=== PATIENT | male | born 1965 | race Caucasian/White ===

== ENCOUNTER → 2016-08-18 | Outpatient (CLI) | payer BC ==
--- NOTE | 2016-08-18 12:23 | DIAGNOSTIC IMAGING REPORT ---
ULTRASOUND ANKLE-BRACHIAL INDICES CLINICAL HISTORY: Peripheral vascular disease. FINDINGS: Ankle-brachial indices are calculated. Right brachial pressure measures 147. Pressures in the right posterior tibial artery measure 172 for an ARIN of 1.14, and pressures in the right dorsalis pedis artery measure 166 for an ARIN of 1.10. Left brachial pressure measures 151. Pressures in the left posterior tibial artery measure 170 for an ARIN of 1.13, and pressures in the left dorsalis pedis artery measure 160 for an ARIN of 1.06. IMPRESSION: Ankle-brachial indices as above. Dictated: 08/18/2016 11:55 AM Transcribed: 08/18/2016 12:23 PM [email or web address] Electronically signed by: Jarad Zuluaga M.D. 08/18/2016 12:29 PM Dictated Date/Time: 08/18/2016 11:55 AM
== END | disposition home or self-care (01) ==
LOC: C.ULTR 10:18
PROVIDERS: ATTEND Family Medicine
DX: R23.0 Cyanosis (principal)

== ENCOUNTER → 2017-10-15 | Outpatient (CLI) | payer BC ==
--- NOTE | 2017-10-15 09:09 | DIAGNOSTIC IMAGING REPORT ---
Biliary ultrasound CLINICAL HISTORY: Abnormal liver function tests COMPARISON STUDY: No previous studies for comparison. FINDINGS: The pancreas appeared normal as visualized. The gallbladder was sonographically normal. There is no ductal dilatation. The common bile duct measured 4 mm. There is no right-sided hydronephrosis. The liver was slightly heterogeneous in echotexture, and there was slight increase in hepatic echogenicity. No focal hepatic masses were visualized IMPRESSION: 1. No evidence of ductal dilatation 2. Slight increase in hepatic echogenicity with slight heterogeneity in hepatic echotexture. While nonspecific, this could be secondary to hepatic steatosis. No focal hepatic masses were visualized Electronically signed by: Vamsi Womack M.D. 10/15/2017 9:08 AM Dictated Date/Time: 10/15/2017 9:06 AM
--- NOTE | 2017-10-15 09:10 | DIAGNOSTIC IMAGING REPORT ---
SOFT TISS HEAD/NECK-THYROID CLINICAL HISTORY: 52 years-old Male with E041. Nontoxic single thyroid nodule COMPARISON: None available TECHNIQUE: Multiple real time sonographic images of the thyroid were obtained accessing powell scale appearance and color doppler flow. FINDINGS: MEASUREMENTS: Right lobe: 4.6 x 1.7 x 1.9 cm Left lobe: 4.2 x 1.5 x 1.5 cm Isthmus: 0.4 cm PARENCHYMA: The thyroid parenchymal echotexture is homogeneous. NODULES: No discrete nodules are appreciated. IMPRESSION: No thyroid nodules identified. The above report was generated using voice recognition software. It may contain grammatical, syntax or spelling errors. Electronically signed by: Edward Leroy M.D. 10/15/2017 9:08 AM Dictated Date/Time: 10/15/2017 9:07 AM
== END | disposition home or self-care (01) ==
LOC: C.ULTRBC 08:15
PROVIDERS: ATTEND Family Medicine
DX: E04.1 Nontoxic single thyroid nodule (principal); R94.5 Abnormal results of liver function studies